=== PATIENT | female | born 2005 | race Hispanic/Latino ===

== ENCOUNTER 2024-11-24 14:05 | Emergency (ER) | payer SELFPAY ==
[2024-11-24 14:07] VITALS: BP 105/60; PULSE 65; RESP 16; TEMP 36.5; O2SAT 100; BMI 27.4
[2024-11-24 15:19] LABS: Hematocrit 38.8 % (37-47); Hemoglobin 13.1 g/dL (12.0-15.0); Immature Granulocytes Count 0.040 X10^3/uL (0.0-0.0); Mean Corp Hgb Conc 33.8 g/dL (32-36); Mean Corpuscular Volume 84.5 fL (81-99); Mean Platelet Vol. 9.9 fl (6.2-12.0); NRBC Flagged by Analyzer 0 % (0-5); Platelet Count 352 K/mm3 (150-450); RBC Distribution Width CV 12.6 % (11.6-14.6); RBC Distribution Width SD 38.3 fl (35.1-43.9); Red Blood Count 4.59 M/mm3 (4.2-5.4); White Blood Count 10.7 K/mm3 (4.4-11.0)
[2024-11-24 15:36] LABS: Internal QC Validated? YES +Cl - CLEAR BKGD; Record Kit Lot#, Serum Preg. 980607
[2024-11-24 15:38] LABS: Pregnancy, Serum, hCG Quali. POSITIVE Negative
[2024-11-24 15:43] LABS: AST(SGOT) 30 U/L (<=31); Alanine Aminotransfer ALT/SGPT 43 U/L (<=34); Albumin, Serum 4.2 g/dL (3.5-5.0); Alkaline Phosphatase 76 U/L (35-104); Anion Gap 9 (5-15); BUN 6 mg/dL (4-19); BUN/Creat Ratio 14.0 RATIO (10-20); Calcium,Total 9.7 mg/dL (7.6-11.0); Carbon Dioxide 24.5 mmol/L (21.0-32.0); Chloride 105 mmol/L (98-108); Estimated Creatinine Clearance 175.80 ml/min (50-250); Globulin 2.9 g/dL (2.2-4.2); Glucose 90 mg/dL (70-99); Lipase 20 U/L (13-75); Potassium 3.7 mmol/L (3.3-5.1)
--- NOTE | 2024-11-24 17:03 | US_ITS ---
PROCEDURE: TRANSVAGINAL W/PREG US 11/24/2024 REASON FOR EXAM: ABD PAIN + TECHNIQUE: Procedure Code: USTVAGP Modality: US Procedure: TRANSVAGINAL W/PREG US COMPARISON: None. FINDINGS GESTATION: Single intrauterine gestational sac with a mean diameter of 34.0 mm. An embryonic pole is identified with a mean crown rump length of 21.7 mm. Positive cardiac activity with a heart rate of 157 beats per minute. Normal appearing yolk sac present. No gross abnormality is identified. LMP gestational age: 8 weeks 1 day LMP MAC: July 05, 2025 Sonographic gestational age: 8 weeks 5 days Sonographic MAC: July 01, 2025 UTERUS: Unremarkable measuring 11.8 x 5.9 x 6.9 cm. No myometrial mass. CERVIX: Closed. Unremarkable. OVARIES: Right ovary not visualized. Left ovary measures 3.0 x 2.2 x 2.5 cm with a volume of 8.7 mL. Doppler evaluation confirms left ovarian blood flow. No adnexal mass. FREE FLUID: No free fluid. US/Transvaginal w/Preg US IMPRESSION: Single live intrauterine with an EGA of 8 weeks 5 days. Size equals dates. No acute abnormality. Reading Location: [id number]
[2024-11-24 17:33] VITALS: BP 124/80; PULSE 65; RESP 16; O2SAT 100
--- NOTE | 2024-11-24 17:35 | ED.RN ---
Pt eating in room. This RN informed patient that she is unable to eat at this time until ultrasound is completed as a precaution. [employer] used to convey message. Pt agreeable.
--- NOTE | 2024-11-24 17:44 | EDS_ITS ---
HPI History of Present Illness Chief Complaint: Abd Pain Narrative Narrative: Patient is a 19-year-old female G1, P0 currently about a month who presents to the emergency department chief complaint of abdominal pain nausea vomiting lightheadedness. Patient states that she missed her last period and took a test at home recently is noted to be positive. She notes that the pain in her abdomen has been there for approximately 3 weeks now has now been progressively worsening prompting her to come to the emergency department. Patient denies any sick contacts but denies any previous abdominal surgeries. PFSH PFS Medical History unable to obtain Allergy/AdvReac Type Severity Reaction Status Date / Time No Known Allergies Allergy Verified 11/24/24 14:10 Social History Smoking Status: Never smoker ROS ROS ED ROS Narrative Constitutional: Denies any fevers, chills, headaches Abdomen: Complains of abdominal pain, nausea, vomiting as noted above : Denies any urinary symptoms denies vaginal spotting Neurological: Denies any numbness, weakness, tingling Musculoskeletal: Denies back pain Skin: Denies any rashes or lesions EXAM Physical Exam Narrative Exam Narrative: General: Patient lying in bed rest comfortably did not appear to be in acute distress Head: Atraumatic, normocephalic Eyes: PERRL bilaterally, EOMI bilaterally, no conjunctival injection noted Neck: Soft, supple, trachea midline Cardiovascular: Regular rate and rhythm Respiratory: Clear to auscultation bilaterally Abdomen: Soft, nondistended, patient has tenderness to palpation left lower quadrant no rebound or guarding on exam Extremities: +5/5 strength noted in the bilateral lower extremities, no pedal edema no exam Neurological: Patient following commands and that she was at [facility] date is 2024 Skin: Warm, dry, intact no rashes or lesions noted Const Vital Signs: 11/24/24 14:07 11/24/24 17:33 11/24/24 19:00 Temperature 97.7 F L Temperature Source Oral Pulse Rate 65 65 68 Respiratory Rate 16 16 14 Blood Pressure 105/60 124/80 H Blood Pressure Mean 75 94 Pulse Ox 100 100 98 Oxygen Delivery Method Room Air Room Air Room Air MDM MDM MDM Narrative Medical decision making narrative: Patient is a 19-year-old female who presents to the emergency department chief complaint of abdominal pain in the setting of positive test. On the differential diagnosis includes but not limited to ectopic , intrauterine , constipation, diverticulitis. Once workup is obtained reviewed she will be reevaluated. Patient be given IV fluids and Reglan . Patient patient's CBC was reviewed and showed no evidence leukocytosis white blood cell normal at 10.7, hemoglobin of 13.1, plate count was 352. Patient sodium was 138, potassium normal 3.7, creatinine was 0.44. Patient's AST and ALT were 30 and 43 respectively test was positive, hCG quant level 105,910 lipase normal at 20 urinalysis pending. Patient's ultrasound reviewed showed single live intrauterine with prediction of 8 weeks 5 days no acute abnormalities identified. Discussed results with the patient and significant other at bedside they like to go home and she was advised that she needs to start vitamin and follow- up with the [facility] team. She was encouraged return with worsening symptoms or concerns. She is agreeable to plan all question concerns answered she was discharged home in stable condition. Lab Data Labs: Laboratory Results - last 24 hr 11/24/24 15:10 WBC 10.7 RBC 4.59 Hgb 13.1 Hct 38.8 MCV 84.5 MCH 28.5 MCHC 33.8 RDW Std Deviation 38.3 RDW Coeff of Que 12.6 Plt Count 352 MPV 9.9 Immature Gran % (Auto) 0.400 Neut % (Auto) 65.7 Lymph % (Auto) 24.3 [place] % (Auto) 6.8 Eos % (Auto) 2.3 Baso % (Auto) 0.5 Absolute Neuts (auto) 7.0 Absolute Lymphs (auto) 2.59 Nucleated RBC % 0 Sodium 138 Potassium 3.7 Chloride 105 Carbon Dioxide 24.5 Anion Gap 9 BUN 6 Creatinine 0.44 L Estim Creat Clear Calc 175.80 Est GFR (MDRD) Non-Af 141 BUN/Creatinine Ratio 14.0 Glucose 90 Calcium 9.7 Total Bilirubin 0.24 AST 30 ALT 43 H Alkaline Phosphatase 76 Total Protein 7.0 Albumin 4.2 Globulin 2.9 Albumin/Globulin Ratio 1.4 Lipase 20 HCG, Quant 243964 H Serum , Qual POSITIVE Radiography Diagnostic Testing: Clinical Impression(s) from Imaging Studies Obstetrics Ultrasound 11/24/24 17:03 IMPRESSION: Single live intrauterine with an EGA of 8 weeks 5 days. Size equals dates. No acute abnormality. Reading Location: [facility] [place] 2] Discharge Plan Triage Chief Complaint: Abd Pain ED Provider: Maxim Jackson Dx/Rx/DC Orders Clinical Impression: Abdominal pain, Primary Care Provider: Care Physician,No Primary Referrals: Care Physician,No Primary [Primary Care Provider, Medical] Nancy Vincent DO [Med Staff - Active Staff, Obstetrics-Gynecology (OBGYN)] Activity Restrictions/Additional Instructions: You need to start vitamin. Your ultrasound showed that you are currently approximately 8 weeks I gave you a copy of these results for your record. Follow-up with your [facility]. Return with worsening symptoms or other concerns your blood work was normal. Print Language: Upper Sorbian Disposition Disposition: Home, Self Care
[2024-11-24 18:15] LABS: hCG Titer Quant., Serum 105910 mIU/mL (<9 non-preg)
[2024-11-24] MEDS: 0.9% Normal Saline (1000mL) 1,000 ML 999 ML IV (18:24)
[2024-11-24 18:35] LABS: Mucous, Urine 0 SEEN /hpf (<or=2+)
[2024-11-24 19:00] VITALS: PULSE 68; RESP 14; O2SAT 98
[2024-11-24 20:37] LABS: Color, Urine Yellow (Yellow); Glucose, Dipstick Normal (Normal); Ketone-Dipstick Negative (Negative); Leukocyte Esterase-Dipstick 500 /ul (Negative); Nitrite-Dipstick Negative (Negative); Occult Blood-Urine Negative /ul (Negative); Protein-Dipstick 15 mg/dl (Negative); Specific Gravity, Urine 1.015 (1.002-1.030); Urine Bilirubin Dipstick Negative (Negative)
[2024-11-24 20:54] LABS: Squamous Epithelial Cells - UA 5-10 SEEN /hpf (5-10)
[2024-11-24 20:55] LABS: Red Blood Cells-Urine 0-5 SEEN /hpf (0-5)
== END 2024-11-24 20:57 | disposition home or self-care (01) ==
PROVIDERS: Emergency Provider Emergency Medicine; Visit Provider Emergency Medicine
DX: O99.892 Other specified diseases and conditions complicating childbirth (principal); Z3A.08 8 weeks gestation of pregnancy; R10.9 Unspecified abdominal pain
CPT/HCPCS: 76817; 80053; 81001; 83690; 84702; 84703; 85025; 96361; 96374; 99282